=== PATIENT | male | born 1985 | race Caucasian/White ===

== ENCOUNTER 2017-06-04 04:19 | Emergency (ER) | payer SELFPAY ==
[2017-06-04] MEDS ORDERED: Acetaminophen 500 MG TAB ONE (05:09)
--- NOTE | 2017-06-04 09:18 | RAD ---
RIGHT WRIST TWO VIEWS HISTORY: Laceration to wrist. FINDINGS: There are no signs of fracture. There is a somewhat rectangular-shaped foreign body within the soft tissues, on the dorsal side of the distal forearm. IMPRESSION: Radiopaque foreign body in the soft tissues on the dorsal side of the distal forearm. POS: [facility]
== END 2017-06-04 05:50 | disposition home or self-care (01) ==
LOC: NAV ERS 04:19
DX: S61.521A Laceration with foreign body of right wrist, initial encounter (principal); F17.200 Nicotine dependence, unspecified, uncomplicated; W25.XXXA Contact with sharp glass, initial encounter